=== PATIENT | male | born 1985 | race Caucasian/White ===

== ENCOUNTER 2018-06-26 15:07 | Outpatient (CLI) | payer OTHER ==
--- NOTE | 2018-06-26 16:21 | ULT ---
SCROTAL SONOGRAM WITH DUPLEX EVALUATION: HISTORY: Left testicular pain. FINDINGS: The right testicle is 4.1 cm in length and the left is 3.6 cm. Each has a normal sonographic appeara nce with good color and spectral Doppler flow. Small cysts associated with the left epididymis. IMPRESSION: No sonographic evidence of testicular mass or torsion. POS: [facility]
== END 2018-06-26 15:08 | disposition home or self-care (01) ==
LOC: SCSULT 15:07
PROVIDERS: ATTEND Family Medicine
DX: N50.812 Left testicular pain (principal)
CPT/HCPCS: 76870; 93976